=== PATIENT | female | born 1965 | race American Indian/Alaskan Native ===

== ENCOUNTER 2016-05-31 17:53 | Emergency (ER) | payer BC ==
[2016-05-31 17:56] VITALS: BMI 30.7
[2016-05-31 18:01] VITALS: TEMP 98.7; O2SAT 100
[2016-05-31] MEDS ORDERED: Sodium Chloride 0.9% 1,000 ML IV STA (18:44)
--- NOTE | 2016-05-31 18:55 | ED PDOC ---
Arrival/HPI - General Chief Complaint: Headache Time Seen by Provider: 05/31/16 18:05 Historian: Patient - History of Present Illness Narrative History of Present Illness (Text): 05/31/16 18:43 This 50 yo female with pmh breast Ca, htn, s/p lumpectomy, presents to this ED c /o left breast pain, feeling light headeness, fatigue x 2 days. Patient admits a chronic left axilla pain for almost a year. Pain radiated to left breast x 3 days ago. She also noted a mild SIMMONS, with nausea. Denies fever, sob, cp, abdominal pain, urinary symptoms, leg swelling, calf pain, recent travel, or sick contact. Time/Duration: Other (3 days. See HPI) Context: Home Past Medical History - Provider Review Nursing Documentation Reviewed: Yes - Cardiac Hx Cardiac Disorders: Yes Hx Hypertension: Yes - Pulmonary Hx Respiratory Disorders: No - Neurological Hx Neurological Disorder: No - HEENT Hx HEENT Disorder: No - Renal Hx Renal Disorder: No - Endocrine/Metabolic Hx Endocrine Disorders: No - Hematological/Oncological Hx Blood Disorders: Yes Hx Cancer: Yes (Breast CA with lumpectomy) - Integumentary Hx Dermatological Disorder: No - Musculoskeletal/Rheumatological Hx Musculoskeletal Disorders: No Hx Arthritis: No - Gastrointestinal Hx Gastrointestinal Disorders: No - Genitourinary/Gynecological Hx Genitourinary Disorders: No - Psychiatric Hx Psychophysiologic Disorder: Yes Hx Depression: Yes Hx Substance Use: No - Anesthesia Hx Anesthesia: Yes Family/Social History - Physician Review Nursing Documentation Reviewed: Yes Family/Social History: No Known Family HX Smoking Status: Light Smoker < 10 Cigarettes Daily Hx Alcohol Use: No Hx Substance Use: No Allergies/Home Meds Allergies/Adverse Reactions: Allergies nitrofurantoin [From Macrobid] Allergy (Verified 05/31/16 17:57) PAIN nitrofurantoin macrocrystalline [From Macrobid] Allergy (Verified 05/31/16 17:57 ) PAIN Home Medications: Home Meds Medication Instructions Recorded Confirmed Irbesartan/Hydrochlorothiazide 1 tab PO DAILY 01/01/16 05/31/16 [Avalide 150-12.5 mg Tablet] Review of Systems - Review of Systems Constitutional: Fatigue. absent: Weight Change, Fevers, Night Sweats Eyes: Normal ENT: Normal Respiratory: Normal. absent: SOB, Cough, Sputum, Wheezing Cardiovascular: Normal Gastrointestinal: Normal. absent: Abdominal Pain, Vomiting Genitourinary Female: Normal. absent: Dysuria, Frequency, Hematuria Musculoskeletal: Normal, Other (See HPI). absent: Back Pain, Neck Pain Skin: Normal. absent: Rash Neurological: Headache, Other (Feels light headedness). absent: Focal Weakness , Gait Changes, Speech Changes, Facial Droop, Disequilibrium Endocrine: Normal Hemo/Lymphatic: Normal Psychiatric: Anxiety, Other (Denies Homicidal ideation). absent: Suicidal Ideation Physical Exam Vital Signs Temp Pulse Resp BP Pulse Ox 05/31/16 21:54 78 19 135/63 100 05/31/16 17:57 98.7 F 80 16 127/85 100 Temperature: Afebrile Blood Pressure: Normal Pulse: Regular Respiratory Rate: Normal Appearance: Positive for: Well-Appearing, Non-Toxic, Comfortable Pain Distress: None Mental Status: Positive for: Alert and Oriented X 3 - Systems Exam Head: Present: Atraumatic, Normocephalic Pupils: Present: PERRL Extroacular Muscles: Present: EOMI Conjunctiva: Present: Normal Mouth: Present: Moist Mucous Membranes Pharnyx: Present: Normal. No: ERYTHEMA, EXUDATE, TONSILS ENLARGED Neck: Present: Normal Range of Motion Respiratory/Chest: Present: Clear to Auscultation, Good Air Exchange. No: Respiratory Distress, Accessory Muscle Use Cardiovascular: Present: Regular Rate and Rhythm, Normal S1, S2. No: Murmurs Abdomen: Present: Normal Bowel Sounds. No: Tenderness, Distention, Peritoneal Signs Breast/Axillary: Present: Tender to Palpation (Mild tenderness left breast over axillary side. No cellulitis or abscess. No streaking erythema. No swelling. 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 ). No: Axillary Lymphad, Discoloration, Erythema, Fluctuance, Masses, Nipple Discharge, Swelling Back: Present: Normal Inspection. No: CVA Tenderness Upper Extremity: Present: Normal Inspection. No: Cyanosis, Edema Lower Extremity: Present: Normal Inspection. No: Edema Neurological: Present: GCS=15, CN II-XII Intact, Speech Normal Skin: Present: Warm, Dry, Normal Color. No: Rashes Psychiatric: Present: Alert, Oriented x 3, Normal Insight, Normal Concentration Medical Decision Making ED Course and Treatment: 05/31/16 20:38 Re-evaluation. Patient feels better. Discussed results and plan with patient who expresses understanding. All questions answered and there is agreement with the plan to discharge home with instructions. Patient stable for discharge. Return if symptoms persist or worsen. Patient has been ambulating to rest room without neuro focal deficits. SIMMONS has improved. Patient is agreeable to to f/u PMD in 1-2 days. She agrees to return to ED if symptoms returns. Re-evaluation Time: 20:38 Reassessment Condition: Re-examined, Improved - Lab Interpretations Lab Results: 05/31/16 18:50 05/31/16 18:50 Lab Results 05/31/16 19:32: Urine Color Yellow, Urine Appearance Clear, Urine pH 6.0, Ur Specific [place] 1.015, Urine Protein Negative, Urine Glucose (UA) Negative, Urine Ketones Negative, Urine Blood Trace-intact H, Urine Nitrate Negative, Urine Bilirubin Negative, Urine Urobilinogen 0.2, Ur Leukocyte Esterase Negative , Urine RBC 1 - 3, Urine WBC 0 - 2, Ur Epithelial Cells 1 - 3, Urine Bacteria Few 05/31/16 18:50: WBC 5.9, RBC 4.07, Hgb 13.2, Hct 37.8, MCV 92.9, MCH 32.4, MCHC 34.9, RDW 13.4, Plt Count 240, MPV 10.9, Gran % 58.8, Lymph % (Auto) 29.3, [place] % (Auto) 9.7 H, Eos % (Auto) 1.9, Baso % (Auto) 0.3, Gran # 3.45, Lymph # 1.7, [place] # 0.6, Eos # 0.1, Baso # 0.02, Sodium 139, Potassium 4.0, Chloride 101, Carbon Dioxide 28, Anion Gap 14, BUN 14, Creatinine 0.9, Est GFR ( Amer) > 60, Est GFR (Non-Af Amer) > 60, Random Glucose 88, Calcium 9.6, Total Bilirubin 0.5, AST 24, ALT 29, Alkaline Phosphatase 75, Total Protein 7.7, Albumin 4.3, Globulin 3.5, Albumin/Globulin Ratio 1.2 05/31/16 18:49: POC Glucose (mg/dL) 102 I have reviewed the lab results: Yes Interpretation: No clinic. lab abnormalty - RAD Interpretation Radiology Orders: 05/31/16 19:39 SOFT TISSUE LIMITED [US] Stat - Medication Orders Current Medication Orders: Discontinued Medications Diazepam (Valium) 5 mg PO ONCE ONE PRN Reason: Protocol Stop: 05/31/16 19:41 Last Admin: 05/31/16 20:45 Dose: Not Given Non-Admin Reason: Patient Refused Sodium Chloride (Sodium Chloride 0.9%) 1,000 mls @ 999 mls/hr IV .Q1H1M STA Stop: 05/31/16 19:44 Last Admin: 05/31/16 18:55 Dose: 999 MLS/HR eMAR Start Stop Document 05/31/16 18:55 [facility] (Rec: 05/31/16 18:55 [facility] [id number]) Intravenous Solution Start Date 05/31/16 Start Time 18:55 End Date 05/31/16 End time 19:56 Total Infusion Time 61 Ketorolac Tromethamine (Toradol) 15 mg IVP STAT STA Stop: 05/31/16 19:40 Last Admin: 05/31/16 20:45 Dose: Not Given Non-Admin Reason: Patient Refused Meclizine HCl (Antivert) 25 mg PO STAT STA Stop: 05/31/16 18:45 Last Admin: 05/31/16 19:36 Dose: 25 MG Metoclopramide HCl (Reglan) 10 mg IVP STAT STA Stop: 05/31/16 19:41 Last Admin: 05/31/16 20:46 Dose: Not Given Non-Admin Reason: Patient Refused Disposition/Present on Arrival - Present on Arrival Any Indicators Present on Arrival: No History of DVT/PE: No History of Uncontrolled Diabetes: No Urinary Catheter: No History of Decub. Ulcer: No History Surgical Site Infection Following: None - Disposition Have Diagnosis and Disposition been Completed?: Yes Diagnosis: Breast pain, Lymph nodes enlarged, Headache Disposition: HOME/ ROUTINE Disposition Time: 20:50 Patient Plan: Discharge Condition: GOOD Discharge Instructions (ExitCare): Lymphadenopathy (ED), Acute Headache (DC) Additional Instructions: Call private doctor and private oncologist for revaluation tomorrow. Return to emergency if symptoms worsen. Make sure you review ultrasound report with your doctor Prescriptions: Meclizine [Meclizine*] 25 mg PO Q6 PRN #20 tab PRN Reason: Dizziness Naproxen [Naprosyn Tab] 375 mg PO BID PRN #14 tab PRN Reason: Pain, Severe (8-10) Famotidine [Pepcid] 40 mg PO DAILY #10 tablet Referrals: Juliann Villavicencio MD [Primary Care Provider] - Follow up with primary
[2016-05-31 19:03] LABS: ADD MANUAL DIFF? NO
[2016-05-31 19:08] LABS: BASO # 0.02 K/mm3 (0.0-2.0); BASO % 0.3 % (0.0-3.0); EOS # 0.1 (0.0-0.7); EOS % 1.9 % (1.5-5.0); GRAN # 3.45 (1.4-6.5); GRAN % 58.8 % (50.0-68.0); HEMATOCRIT 37.8 % (36.0-48.0); LYMPH # 1.7 (1.2-3.4); LYMPH % 29.3 % (22.0-35.0); MEAN CELL VOLUME 92.9 fL (80.0-105.0); MEAN CORPUSCULAR HEMOGLOBIN 32.4 pg (25.0-35.0); MEAN CORPUSCULAR HGB CONC 34.9 g/dl (31.0-37.0); MEAN PLATELET VOLUME 10.9 fl (7.0-11.0); MONO # 0.6 (0.1-0.6); MONO % 9.7 % (1.0-6.0); PLATELET COUNT 240 10^3/uL (120.0-450.0); RED CELL DISTRIBUTION WIDTH 13.4 % (11.5-14.5); WHITE BLOOD COUNT 5.9 10^3/ul (4.5-11.0)
[2016-05-31 19:13] LABS: ALB/GLOB RATIO 1.2 (1.1-1.8); ALKALINE PHOSPHATASE 75 U/L (38-133); ALT/SGPT 29 U/L (7-56); AST/SGOT 24 U/L (15-39); BILIRUBIN,TOTAL 0.5 mg/dL (0.2-1.3); BLOOD UREA NITROGEN 14 mg/dL (7-21); CALCIUM 9.6 mg/dL (8.4-10.5); CARBON DIOXIDE 28 mmol/L (21-33); CHLORIDE 101 mmol/L (98-107); GFR AFRICAN-AMERICAN > 60; GLUCOSE,RANDOM 88 mg/dL (70-110); SODIUM 139 mmol/L (132-148); TOTAL PROTEIN 7.7 g/dL (5.8-8.3)
[2016-05-31 19:36] LABS: URINE BILIRUBIN NEGATIVE (NEGATIVE); URINE BLOOD TRACE-INTACT (NEGATIVE); URINE GLUCOSE (UA) NEGATIVE (NEGATIVE); URINE KETONE NEGATIVE (NEGATIVE); URINE LEUKOCYTE ESTERASE NEGATIVE Leu/uL (NEGATIVE); URINE PROTEIN NEGATIVE mg/dL (<30 mg/dL); URINE UROBILINOGEN 0.2 E.U./dL (<1 E.U./dL)
[2016-05-31 19:39] LABS: URINE APPEARANCE CLEAR (CLEAR); URINE COLOR YELLOW (YELLOW)
[2016-05-31 19:49] LABS: URINE WBC 0 - 2 /hpf (0-6)
[2016-05-31 19:50] LABS: URINE BACTERIA FEW (NEG)
--- NOTE | 2016-05-31 20:45 | US ---
EXAM: US Left Axilla Non-Vascular US Right Axilla Non-Vascular CLINICAL HISTORY: 50 years old, female; Pain; Other: Left axilla lymphs nodes; Prior surgery; Surgery type: Pt says lymphs node removed approximately same area one years past; Additional info: Left axillary lateral breast pain TECHNIQUE: Real-time ultrasound scan of the left axilla with image documentation. Real-time ultrasound scan of the right axilla with image documentation. EXAM DATE/TIME: 05/31/2016 7:39 PM COMPARISON: No relevant prior studies available. FINDINGS: The axillary soft tissues were scanned bilaterally. The right axillary soft tissues were scanned for comparison purposes. 3 oval-shaped, hypoechoic, masslike areas are seen in the left axilla, with an appearance most compatible with multiple small lymph nodes. The largest lymph node measures 1.3 x 0.5 x 1.2 cm. The second largest measures 1.0 x 0.5 x 0.9 cm. The smallest measures 0.9 x 0.6 x 0.8 cm. No fluid collections are seen. No masses or fluid collections are visualized in the right axillary soft tissues. IMPRESSION: Small left axillary lymph nodes, the largest measuring 1.3 x 1.2 cm. These are nonspecific in appearance. Recommend clinical correlation. See above for remaining findings.
[2016-05-31 21:55] VITALS: BP 135/63; PULSE 78; RESP 19
--- NOTE | 2016-06-01 15:34 | CARD ---
APPROVED REPORT EKG Measurement Heart [id number] <Conclusion> Sinus rhythm with 1st degree AV block Cannot rule out Anterior infarct, age undetermined Abnormal ECG
== END 2016-05-31 21:55 | disposition home or self-care (01) ==
LOC: ED 17:53
DX: N64.4 Mastodynia (principal); R59.9 Enlarged lymph nodes, unspecified; F17.210 Nicotine dependence, cigarettes, uncomplicated
CPT/HCPCS: 76882; 80053; 81001; 82948; 85025; 93005; 96360; 99285; J7040